=== PATIENT | male | born 1990 | race American Indian/Alaskan Native ===

== ENCOUNTER 2021-01-26 05:44 | Emergency (ER) | payer OTHER ==
[2021-01-26] MEDS ORDERED: ZIPRASIDONE MESYLATE 20 MG VIAL IM ONE (05:47)
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
== END 2021-01-26 05:58 ==
LOC: ED 05:44
DX: S46.911A Strain of unspecified muscle, fascia and tendon at shoulder and upper arm level, right arm, initial encounter (principal); Z00.8 Encounter for other general examination; X58.XXXA Exposure to other specified factors, initial encounter; Y93.89 Activity, other specified; Y92.89 Other specified places as the place of occurrence of the external cause; Y99.8 Other external cause status
CPT/HCPCS: 99282; J3486